=== PATIENT | female | born 1990 | race Caucasian/White ===

== ENCOUNTER 2024-04-20 10:15 | Outpatient (CLI) | payer BC, OTHER, SELFPAY ==
[2024-04-20 11:04] LABS: Alanine Aminotransferase 14 U/L (6-35); Albumin Level 4.1 g/dL (3.5-5.1); Alkaline Phosphatase 77 U/L (38-126); Amylase 81 U/L (30-110); Aspartate Amino Transferase 23 U/L (14-36); Bilirubin,Total 0.3 mg/dL (0.2-1.3); Lipase 113 U/L (23-300)
== END 2024-04-20 10:16 | disposition home or self-care (01) ==
PROVIDERS: PCP Nurse Practitioner Adult Health; Visit Provider Surgery
DX: K80.20 Calculus of gallbladder without cholecystitis without obstruction (principal)
CPT/HCPCS: 36415; 80076; 82150; 83690; 86850; 86900; 86901

== ENCOUNTER 2024-04-21 01:09 | Day surgery (SDC) | payer BC, OTHER, SELFPAY ==
--- NOTE | 2024-04-16 13:40 | PC.NURSE ---
Report to the Outpatient Waiting Room, entrance under the green pavilion located off [facility], at time __1000_ on date __04/21/24_. Planned Procedure Time: __1200_.? Time changes happen often and if your time is changed the preop area will call you the afternoon before. - You and your visitor will be asked to self-screen and do not enter if you have any COVID symptoms. Please call surgeon if you need to reschedule. - A mask is optional within the hospital at this time. Patients may have clear liquids (water, carbonated beverages, clear teas, apple juice) until 3 hours prior to surgery with a maximum of 20 ounces. - No food from midnight until time of surgery and no smoking - Infants may have breast milk until 4 hours before surgery, infant formula 6 hours prior to surgery. - Children will be allowed to drink immediately following surgery.? If applicable, please bring a bottle or sippy cup to assist with drinking. Juice, water, soda, and popsicles are readily available.? For infants on formula, please bring formula the day of surgery.? Pacifiers are allowed. Take only the following medications with a SIP of water on the morning of surgery: NONE DO NOT STOP ANY OF YOUR OTHER PRESCRIPTION MEDICATIONS PRIOR TO SURGERY EXCEPT THE FOLLOWING Medications to discontinue per physician NONE Date to take last dose Please no make-up, nail romansh, hairspray, perfume, deodorant, or body powder the day of surgery.? No jewelry (including any body piercings) or valuables the day of surgery, leave them at home.? Please take a shower or bath the night before, or the morning of, surgery with HIBICLENS antibacterial soap.? Wear comfortable, loose fitting clothing.? Children are encouraged to wear pajamas. - Jewelry must be removed prior to entering the operating room.? Rings and piercings that are not removed may be cut off. - The hospital will not accept responsibility for valuables.? - Please leave all valuables, including medications, at home the day of surgery. If you are going home after surgery, a licensed bulk tank driver must drive you home.? - NO public transportation without another adult if you receive anesthesia. - We recommend that an adult stay with you for 24 hours following discharge. - We also recommend that you do not drive, make important decision, drink alcoholic beverages, or take any drugs that were not prescribed by your health care provider for at least 24 hours after your discharge time. For Pediatric surgeries, we recommend two adults accompany the child home. Follow any additional instructions given to you from your surgeon. Telephone instructions given to _PATIENT __and asked if any additional questions and then verbalized understanding. Patient advised to call surgeon office or pre surgery nurse liaison [phone] if any additional questions.
[2024-04-21] VITALS (8 sets, daily range): BP systolic 109–122; BP diastolic 67–91; PULSE 83–106; RESP 18–20; TEMP 36.8–37.1; O2SAT 96–100
[2024-04-21] MEDS: ACETAMINOPHEN 500 MG TABLET 1000 MG PO (10:30)
[2024-04-21] MEDS: INDOCYANINE GREEN 25 MG VIAL WITH DILUENT 3.75 MG IV PUSH (10:30)
[2024-04-21] MEDS: LACTATED RINGERS 1,000 ML 30 ML IV CONT ×2 (10:30→14:16)
[2024-04-21] MEDS: KETOROLAC 15 MG/ML VIAL (*BKC) IV PUSH (10:30)
--- NOTE | 2024-04-21 11:30 | P.PNAN_ITS ---
Anes - Initial Pre Proc Eval Procedure: Operation Date: 04/21/24 12:00 Proposed Procedures p Laparoscopic Cholecystectomy Davinci Assisted - Bucky Liu DO Date/Time: 04/21/24 11:30 Surgeon: Bucky Liu DO Pre Op Diagnosis: Symp Cholelithiasis Patient Data Age: 34 Gender: F Height: Weight: 77.1 kg Last Vital Signs Temp 98.7 F 04/21/24 11:19 Pulse 83 04/21/24 11:19 Resp 18 04/21/24 11:19 BP 109/91 H 04/21/24 11:19 Pulse Ox 100 04/21/24 11:19 O2 Del Method Room Air 04/21/24 11:19 Allergies Allergy/AdvReac Type Severity Reaction Status Date / Time No Known Allergies Allergy Verified 04/21/24 11:16 Home Medications Medication Instructions Recorded Confirmed Type fluoxetine 20 mg capsule 20 mg PO HS 04/16/24 04/21/24 History Patient hx anesthesia problems: none Family hx anesthesia problems: none Results Review: All pre-operative results and documents have been reviewed as part of the pre- operative evaluation. FOR[facility]LY [facility] Past Medical History Medical History Allergies Anxiety Family History Family History Father Diabetes mellitus Hypertension Mother Diabetes mellitus Hypertension Depression Sibling Depression Social History Social History Years smoked: 1 Smoking status: Former smoker Tobacco type: cigarettes Alcohol intake: current Drinks per week: 4 Alcohol use details: Social Substance use: never Lack of Transportation: No Lack of Food: Never True Current Housing: I Have Housing Concerned About Future Housing: No Difficulty Paying Gas/Electric Bills: No Difficulty Paying for Meds: No Currently Unemployed: No Education: Bachelor's Degree Difficulty w/ Childcare or Family Care: No Living arrangements: with family Occupation/Education: occupation Additional occupation/education comments: [employer] Gender identity (if verbalized by the patient): Female Agree to blood products: Yes Anes - Eval Final PreProcedure Day of Procedure 04/21/24 11:30 Patient weight: overweight Heart: regular rate and rhythm Lungs: clear to auscultation Airway: Mallampati scale class II Neurological: alert and oriented Last oral intake: >/= 8 hours ASA classification: II Emergent: no Anesthetic plan: proceed Anesthesia type and monitoring: general ETT and standard monitoring Results Review: All pre-operative results and documents have been reviewed as part of the pre- operative evaluation. Pt w overall good functional status, walks 1 mile most days, no cp or sob. Informed Consent: The patient's anesthetic plan and its attendant risks and benefits were discussed with the patient/family/POA. Questions were solicited and answers provided to the satisfaction of the patient/family/POA.
--- NOTE | 2024-04-21 12:05 | WPDHPUPDATE1 ---
History and Physical Update Update Date/Time: 04/21/24 12:05 History and Physical has been reviewed, including an updated exam of the patient. There are NO changes in the patient's condition. Risks, benefits, and alternatives have been discussed and questions answered. Patient agrees to proceed with procedure.
[2024-04-21] MEDS: ceFAZolin 2 GM/D5W 50 ML 2 GM/50 ML BAG IVPB (12:44)
[2024-04-21] MEDS: BUPIVACAINE/EPINEPHRINE 0.5% 10 ML VIAL 30 ML INFILTRATE (13:26)
--- NOTE | 2024-04-21 13:55 | W.PM.PROC2 ---
Procedure Note - Detailed Date of Procedure 04/21/24 Pre-op Diagnosis Symptomatic Cholelithiasis Post-op Diagnosis Same Procedure Performed 1. Laparoscopic cholecystectomy with cholangiography, da Tiffanie assisted 2. Interpretation of cholangiography Surgeon Bucky Liu DO Anesthesia General and Local (0.5% bupivacaine) Indications This is a 34-year-old woman who presented with right upper quadrant pain that started about 2 weeks ago. She had an acute episode and went to [facility] Emergency Department. She was found to have evidence of cholelithiasis and mild gallbladder wall thickening at that time. She was able to be discharged home and she followed up in the office. She continued to have some right upper quadrant pain although it was not as severe as when she 1st went to the ED. Discussions were made with the patient about treatment options and decision was made to proceed with robotic assisted laparoscopic cholecystectomy. Findings Robotic assisted laparoscopic cholecystectomy with cholangiography was performed. 1.5 mL of indocyanine green was administered intravenously preoperatively. Near infrared fluorescence imaging was then utilized intraoperatively to identify the biliary anatomy. The cystic duct was clearly identified using the indocyanine green. This appeared to be far enough away from the common bile duct and no other biliary abnormalities were noted. The gallbladder was dilated and enlarged, but there did not appear to be any evidence of acute inflammation. The gallbladder was removed and sent to the lab for pathology. Description of Procedure Procedure as well as risks, benefits, and alternatives were discussed with the patient. Written consent was obtained and placed in chart prior to procedure. 1.5 mL of indocyanine green was given intravenously in preop. Patient was brought back to surgical suite. She was placed supine on operating table. Time-out was done to confirm patient and procedure. She was then intubated by the anesthesia department. Her abdomen was then prepped and draped in sterile fashion using chlorhexidine prep. 0.5% bupivacaine was infiltrated locally at the site of each port placement. An 8 mm incision was made in the left upper quadrant and a 5 mm Optiview trocar was then advanced through the abdominal layers under direct visualization. Once inside the abdominal cavity, carbon dioxide insufflation was used to create a pneumoperitoneum. The camera was inserted and the abdomen was inspected. No mediated abnormalities were noted. The patient was placed in 12? reverse Trendelenburg position and rotated 6? to the left. Two 8 mm incisions were made in the right lateral abdomen and 2 8 mm trocars were inserted under direct visualization. An 8 mm incision was made in the supraumbilical region and an 8 mm trocar was inserted under direct visualization. The 5 mm Optiview trocar was then removed and another 8 mm trocar was inserted in its place. The robotic arms were then brought up to the patient's bedside and secured to each port. The camera and instruments were inserted. I then moved over to the robotic consult to take control of the camera and instruments. The gallbladder was grasped at the fundus and retracted cephalad. The infundibulum of the gallbladder was then grasped and retracted laterally. Hook electrocautery was then used to carefully dissect around the neck of the gallbladder. The cystic duct was identified and a window was created around it using hook electrocautery. The cystic artery was also identified and a window was created behind it using hook electrocautery. Critical view of safety was identified visualizing the cystic duct running directly into the neck of the gallbladder and the cystic artery running directly into the wall the gallbladder. The camera view was switched to firefly mode and the indocyanine green within the gallbladder and cystic duct was clearly visualized. No other str
[2024-04-21] MEDS: fentaNYL CITRATE INJ (*CRX) 100 MCG/2 ML VIAL 25 MCG IV PUSH ×3 (14:28→14:42)
--- NOTE | 2024-04-21 14:32 | SUR.PHASEI ---
[id number] - dr. ac at bedside
[2024-04-21] MEDS: oxyCODONE HCL (*CRX) 5 MG TAB IR PO (15:40)
== END 2024-04-21 15:57 | disposition home or self-care (01) ==
PROVIDERS: PCP Nurse Practitioner Adult Health; Visit Provider Surgery
PROC: 0FT44ZZ Resection of Gallbladder, Percutaneous Endoscopic Approach (ICD-10-PCS; CPT 47562; principal; 2024-04-21 12:00)
DX: K80.10 Calculus of gallbladder with chronic cholecystitis without obstruction (principal); F41.9 Anxiety disorder, unspecified; Z87.891 Personal history of nicotine dependence
CPT/HCPCS: 47563; 74300; S2900; 88304; A9270; J0690; J1100; J1200; J1885; J2250; J2405; J2704; J3010; J7120

== ENCOUNTER 2025-04-05 09:51 | Outpatient (CLI) | payer BC, SELFPAY ==
--- NOTE | ~2025-04-05 | XR_ITS ---
EXAMINATION: XR sinus min 3V DATE: 04/05/2025 10:06 INDICATION: Allergies TECHNIQUE: Open and closed mouth water's, Coyne, lateral and submental views of the paranasal sinuses were obtained COMPARISON: None. FINDINGS: Maxillofacial bones are normal with no evident fractures. Mastoid air cells and paranasal sinuses appear well-aerated with no evident air-fluid levels. Small ring at the right nares. Nasal septum is midline. IMPRESSION: 1. Unremarkable radiographs of the paranasal sinuses. Reviewed, dictated and finalized at location A.
--- OUTSIDE RECORDS SUMMARY | 2025-04-05 10:08 | XMS_ITS | Clinical Summary ---
Author Organization [facility] [place] Address [address] [place] [address] Phone Care Team Providers Care Teacher Home Therapy Name Role Phone Provider, None Primary Care Provider Unavailabl e Allergies No known active allergies Medications fenofibrate 160 MG Tablet 09/23/19 23 Active Wegovy 1 MG/0.5ML Solution Auto-injector INJECT 1 MG SUBCUTANEOUSLY EVERY WEEK 08/27/19 23 Active methylPREDNISol one (Medrol) 4 MG Tablet Therapy PackIndications :Contact dermatitis, unspecified contact dermatitis type, unspecified trigger Use as per instructions on package. 21 Tablet 10/02/19 23 Active Additional Information Patient not taking.Reported on 07/08/2023 Ascorbic Acid (VITAMIN C PO) Take by mouth daily. Active Active Problems No known active problems Social History Tobacco Use Types Packs/Day Years Used Date Smoking Tobacco: Never Smokeless Tobacco: Never Alcohol Use Standard Drinks/Week Comments Not Currently 0 (1 standard drink = 0.6 oz pur e alcohol) Sexually Active Control Partners Comments Not Currently Comments No Sex and Gender Information Value Date Recorded Sex Assigned at Not on file Legal Sex Female 10:42 PM CDT Gender Identity Not on file Sexual Orientation Not on file Last Filed Vital Signs Vital Sign Reading Time Taken Comments Blood Pressure 102/86 07/08/2023 10:12 AM [employer] Pulse 105 07/08/2023 10:12 AM [employer] Temperature 37.9 C (100.2 F) 07/08/2023 10:12 AM [employer] Respiratory Rate 18 07/08/2023 10:12 AM [employer] Oxygen Saturation 97% 07/08/2023 10:12 AM [employer] Inhaled Oxygen Concentration - - Weight 88.5 kg (195 lb) 07/08/2023 10:12 AM [employer] Height - - Body Mass Index - - Plan of Treatment Health Maintenance Due Date Last Done Comments Hepatitis C Virus (HCV) Screening 1991 TdaP Immunization 1991 Hepatitis B Immunization (1 of 3 - 19+ 3-dose series) 2010 Pap Smear 02/19/2012 Human Papillomavirus (HPV) Immunization (1 - 3-dose SCDM series) 2018 Cervical Cancer Screening (CCS) 2021 HPV/Cotest 2021 SARS-COV-2 Immunization ( - 2023- season) 2024 Influenza Immunization (#1) 2025 Respiratory Syncytial Virus (RSV) Immunization (Adult) (1 - 1-dose 75+ series) 2066 Meningococcal Immunization (ACWY) Aged Out No longer eligible based on patient's age to complete this topic Pneumococcal Immunization Combined Aged Out No longer eligible based on patient's age to complete this topic Rotavirus Immunization Aged Out No lo nger eligible based on patient's age to complete this topic Insurance [facility] Care Teams Teacher Home Therapy Relationship Specialty Start Date End Date Provider, None [place] PCP - General 07/24/21
== END 2025-04-05 09:52 | disposition home or self-care (01) ==
LOC: ANHBWCIMG 09:52
PROVIDERS: PCP Nurse Practitioner Adult Health; Visit Provider Nurse Practitioner Adult Health
DX: T78.40XA Allergy, unspecified, initial encounter (principal)
CPT/HCPCS: 70220

== ENCOUNTER 2025-07-12 11:21 | Outpatient (CLI) | payer BC, OTHER, SELFPAY | END 2025-07-12 11:22 | disposition home or self-care (01) | PROVIDERS: PCP Nurse Practitioner Adult Health; Visit Provider Otolaryngology Otolaryngology/Facial Plastic Surgery | DX: H91.91 Unspecified hearing loss, right ear (principal) | CPT/HCPCS: 92557; 92567 ==